=== PATIENT | female | born 1975 | race Caucasian/White ===

== ENCOUNTER → 2018-10-19 | Outpatient (CLI) | payer OTHER ==
[~2018-10-19] MED LIST: PENICILLIN VK500 MG PO; ZOFRAN4 MG PO
--- NOTE | ~2018-10-19 | EKG ---
[place], [place] ELECTROCARDIOGRAM REPORT NAME: CATRACHO LEWIS UNIT #: [id number] ROOM: DOCTOR: EPIPHANY DRAFT REPORT BIRTHDATE: [birth year] [facility] [place] Test Date: 2018-10-19 Test Time: 11:54:37 Pat Name: CATRACHO LEWIS Department: Room: Gender: F [employer] In[employer]: : 1975 Requested By: SAMMY THORNTON Order Number: [id number] Reading MD: Measurements Intervals [place] Rate: 54 P: 60 ND: 158 QRS: 74 QRSD: 63 T: 65 QT: 385 QTc: 365 Interpretive Statements Sinus rhythm ST elev, probable normal early repol pattern No previous ECG available for comparison CM:EKGRPT:ELECTROCARDIOGRAM REPORT [id number] SAMMY MCCLOUD DRAFT REPORT SAMMY THORNTON MD
== END | disposition home or self-care (01) ==
LOC: RESCLI 08:37
DX: Z01.818 Encounter for other preprocedural examination (principal); G89.29 Other chronic pain; N32.81 Overactive bladder; Q05.9 Spina bifida, unspecified; F43.10 Post-traumatic stress disorder, unspecified; F31.9 Bipolar disorder, unspecified; G62.9 Polyneuropathy, unspecified; F51.01 Primary insomnia; E55.9 Vitamin D deficiency, unspecified; K58.9 Irritable bowel syndrome, unspecified; F17.200 Nicotine dependence, unspecified, uncomplicated; Z79.899 Other long term (current) drug therapy; Z90.49 Acquired absence of other specified parts of digestive tract; Z90.710 Acquired absence of both cervix and uterus; Z88.8 Allergy status to other drugs, medicaments and biological substances

== ENCOUNTER → 2018-12-28 | Outpatient (CLI) | payer OTHER | END | disposition home or self-care (01) | LOC: RESCLI 01:30 | DX: K08.409 Partial loss of teeth, unspecified cause, unspecified class (principal); F17.200 Nicotine dependence, unspecified, uncomplicated; K58.9 Irritable bowel syndrome, unspecified; E55.9 Vitamin D deficiency, unspecified; F51.01 Primary insomnia; G62.9 Polyneuropathy, unspecified; F31.9 Bipolar disorder, unspecified; F43.10 Post-traumatic stress disorder, unspecified; Q05.9 Spina bifida, unspecified; N32.81 Overactive bladder; G89.29 Other chronic pain; Z79.899 Other long term (current) drug therapy; Z90.49 Acquired absence of other specified parts of digestive tract; Z90.710 Acquired absence of both cervix and uterus ==

== ENCOUNTER → 2019-03-29 | Outpatient (CLI) | payer OTHER | END | disposition home or self-care (01) | LOC: RESCLI 00:31 | DX: K08.409 Partial loss of teeth, unspecified cause, unspecified class (principal); F17.200 Nicotine dependence, unspecified, uncomplicated; K58.9 Irritable bowel syndrome, unspecified; F51.01 Primary insomnia; G62.9 Polyneuropathy, unspecified; F31.9 Bipolar disorder, unspecified; F43.10 Post-traumatic stress disorder, unspecified; N32.81 Overactive bladder; G89.29 Other chronic pain; Q05.9 Spina bifida, unspecified ==